=== PATIENT | female | born 1955 | race Caucasian/White ===

== ENCOUNTER → 2016-07-29 | Outpatient (CLI) | payer OTHER | LOC: FIMAGING 11:32 | PROVIDERS: ATTEND Nurse Practitioner | DX: N63 Unspecified lump in breast (principal) | CPT/HCPCS: G0204 ==

== ENCOUNTER 2017-05-17 13:29 | Emergency (ER) | payer OTHER ==
[2017-05-17 13:41] VITALS: RESP 18; TEMP 98.2; O2SAT 97
[2017-05-17] MEDS ORDERED: NS 1,000 ML IV ONE (13:52)
[2017-05-17] MEDS ORDERED: ONDANSETRON 4 MG/2 ML VIAL IVP ONE (13:52)
[2017-05-17] MEDS ORDERED: HYDROmorphONE/DILAUDID 1 MG/ML INJ IVP ONE (13:52)
--- NOTE | 2017-05-17 13:54 | EDPHY ---
H & P Stated Complaint: R back pain since Tuesday; now with RLQ pain; nausea Source: Patient Exam Limitations: No limitations - Personal History Current Tetanus/Diphtheria Vaccine: Yes - Medical/Surgical History Hx Asthma: No Hx Chronic Respiratory Disease: No Hx Diabetes: No Hx Cardiac Disease: No Hx Renal Disease: No Hx Cirrhosis: No Hx Alcoholism: No Hx HIV/AIDS: No Hx Splenectomy or Spleen Trauma: No Other PMH: Renal artery stenosis,. breast augment. elbow surg. tonsails. Scoliosis-CHRONIC PAIN C SPINE AND L SPINE - Social History Smoking Status: Former smoker Alcohol Use: Sober Time Seen by Provider: 05/17/17 13:43 HPI/ROS: CHIEF COMPLAINT: Right flank pain HISTORY OF PRESENT ILLNESS: Patient is a 61-year-old female with a history of renal artery stenosis post angioplasty who comes to the emergency department complaining of right flank pain that began 2 days ago is now radiating to her front. She states that she has had chills but no fever. No dysuria. No hematuria. No vaginal bleeding. She did have slight diarrhea. Nausea but no vomiting. She denies trauma. REVIEW OF SYSTEMS: Constitutional: denies: chills, fever, recent illness, recent injury EENTM: denies: blurred vision, double vision, nose congestion Respiratory: denies: cough, shortness of breath Cardiac: denies: chest pain, irregular heart rate, lightheadedness, palpitations Gastrointestinal/Abdominal: See HPI Genitourinary: denies: dysuria, frequency, hematuria, pain Musculoskeletal: See HPI Skin: denies: lesions, rash, jaundice, bruising Neurological: denies: headache, numbness, paresthesia, tingling, dizziness, weakness Hematologic/Lymphatic: denies: blood clots, easy bleeding, easy bruising Immunologic/allergic: denies: HIV/AIDS, transplant EXAM: GENERAL: Well-appearing, well-nourished and in no acute distress. HEAD: Atraumatic, normocephalic. EYES: Pupils equal round and reactive to light, extraocular movements intact, sclera anicteric, conjunctiva are normal. ENT: TMs normal, nares patent, oropharynx clear without exudates. Moist mucous membranes. NECK: Normal range of motion, supple without lymphadenopathy or JVD. LUNGS: Breath sounds clear to auscultation bilaterally and equal. No wheezes rales or rhonchi. HEART: Regular rate and rhythm without murmurs, rubs or gallops. ABDOMEN: Soft, nontender, normoactive bowel sounds. No guarding, no rebound. No masses appreciated. BACK: Mild right-sided CVA tenderness, no spinal tenderness, step-offs or deformities EXTREMITIES: Normal range of motion, no pitting or edema. No clubbing or cyanosis. NEUROLOGICAL: Cranial nerves II through XII grossly intact. Normal speech, normal gait. 5/5 strength, normal movement in all extremities, normal sensation PSYCH: Normal mood, normal affect. SKIN: Warm, dry, normal turgor, no visible rashes or lesions. (Ramin Davila) Constitutional: Initial Vital Signs Temperature (C) 36.8 C 05/17/17 13:36 Heart Rate 86 05/17/17 13:36 Respiratory Rate 18 05/17/17 13:36 Blood Pressure 153/106 H 05/17/17 13:36 O2 Sat (%) 97 05/17/17 13:36 O2 Delivery Mode Room Air Allergies/Adverse Reactions: No Known Allergies Allergy (Unverified 04/25/14 19:23) Home Medications: Medication Instructions Recorded Ambien 10 mg 04/25/14 Hormone Treatment, Nos 04/25/14 Wellbutrin Sr 04/25/14 Lisinopril 05/17/17 Ultracet Tablet 05/17/17 Medical Decision Making - Diagnostics Imaging: Discussed imaging studies w/ tow bar driver Radiologist ED Course/Re-evaluation: CT negative for acute pathology, report received from Dr Flowers. Pt feeling improved. She reveals that she has a hx of scoliosis with chronic back pain for which she takes Ultracet 4 times a day and that she has been moving for the last few days with heavy and repetitive lifting. She also states she has had some cough and chills. An influenza swab was sent and was neg. Imp msk left lower and left upper back pain plan dc home f/u pcp return if worsening (Carol Calero) 3:00 p.m. the patient is feeling much better. Her lab work is reassuring thus far. CT is pending. Care transferred to Dr. Adame. (Ramin Davila) Differential Diagnosis: Partial list of the Differential diagnosis considered include but were not limited to; kidney stone, pyelonephritis, musculoskeletal pain and although unlikely based on the history and physical exam, I also considered renal artery aneurysm, dissection, volvulus, obstruction, ovarian cyst. I discussed these differential diagnoses and the plan with the patient as well as the usual and expected course. The patient understands that the diagnosis is provisional and that in medicine we are not always correct and that further workup is often warranted. Usual and customary warnings were given. All of the patient's questions were answered. The patient was instructed to return to the emergency department should the symptoms at all worsen or return, otherwise to followup with the physician as we discussed. (Ramin Davila) - Data Points Laboratory Results: Laboratory Results 05/17/17 14:04 05/17/17 14:04 Medications Given: Discontinued Medications Hydromorphone HCl (Dilaudid) 0.5 mg IVP EDNOW ONE Stop: 05/17/17 13:53 Last Admin: 05/17/17 14:06 Dose: 0.5 mg Sodium Chloride (Ns) 1,000 mls @ 0 mls/hr IV EDNOW ONE; Wide Open PRN Reason: Protocol Stop: 05/17/17 13:53 Last Admin: 05/17/17 14:05 Dose: 1,000 mls Ketorolac Tromethamine (Toradol) 30 mg IVP EDNOW ONE Stop: 05/17/17 14:33 Last Admin: 05/17/17 14:35 Dose: 30 mg Ondansetron HCl (Zofran) 4 mg IVP EDNOW ONE Stop: 05/17/17 13:53 Last Admin: 05/17/17 14:05 Dose: 4 mg Departure - Departure Disposition: Home, Routine, Self-Care Clinical Impression: Upper back pain on right side Pain in lower back Qualifiers: Chronicity: acute Back pain laterality: right Sciatica presence: without sciatica Qualified Code(s): M54.5 - Low back pain Condition: Good Instructions: Low Back Strain (ED), Back Pain (ED) Referrals: Tangela Laguna [Primary Care Provider] - As per Instructions
[2017-05-17 14:10] LABS: PLATELET COUNT 242 10^3/uL (150-400)
[2017-05-17] MEDS ORDERED: IOPAMIDOL (ISOVUE-300) 100 ML BTL ONE (14:18)
[2017-05-17] MEDS ORDERED: KETOROLAC 30 MG/1 ML SDV IVP ONE (14:32)
[2017-05-17 15:31] VITALS: BP 157/96; PULSE 89
== END 2017-05-17 15:56 | disposition home or self-care (01) ==
LOC: CED 13:29
PROC: 3E0337Z Introduction of Electrolytic and Water Balance Substance into Peripheral Vein, Percutaneous Approach (ICD-10-PCS; principal; 2017-05-17)
DX: M54.6 Pain in thoracic spine (principal); M54.5 Low back pain; E86.9 Volume depletion, unspecified; Z87.891 Personal history of nicotine dependence
CPT/HCPCS: 74177-PO; 80048-PO; 80076-PO; 81003-PO; 81015-PO; 83690-PO; 85025-PO; 87400-PO; 96374; J1170; J1885; J2405; Q9967